=== PATIENT | female | born 1990 | race African-American/Black ===

== ENCOUNTER 2018-05-09 20:40 | Emergency (ER) | payer MEDICAID ==
[~2018-05-09] VITALS: Ht 165.1 cm; Wt 84.4 kg
[2018-05-09 21:29] VITALS: BP 112/63
--- NOTE | 2018-05-09 21:44 | Emergency Room Report ---
History of Present Illness General Chief Complaint: Pain Source: Patient Present Illness HPI This is a 27-year-old female 4, para 2, approximately 5 weeks . She presents with chief complaint of left pelvic cramps. No bleeding. She had a history of ectopic on the left side. She is O-. So far, no testing. No fever chills but no nausea no vomiting. Pain came after she fell at work 4 days ago. She has a second complaint of left arm pain and numbness. His been ongoing for a few months. No trauma. No neck pain. Pain started from the right trapezius going down to the fingers. Denies any other complaint. Worse with certain movement. No focal deficit. Also with diffuse joint pain in that arm. No swelling. Allergies: Coded Allergies: No Known Allergies (Unverified , 05/09/18) Patient History Past Medical History: see triage record, old chart reviewed Past Surgical History: other Pertinent Family History: none Social History: Denies: smoking Last Menstrual Period: 03/30/2018 Now: Yes - Approx 5-6 weeks Immunizations: other Reviewed Nursing Documentation: PMH: Agreed; PSxH: Agreed Nursing Documentation-PMH Past Medical History: No Stated History Review of Systems Eye: Denies: eye pain, blurred vision ENT: Denies: ear pain, nose congestion, throat swelling Respiratory: Denies: cough, shortness of breath Cardiovascular: Denies: chest pain, palpitations Gastrointestinal: Denies: abdominal pain, diarrhea, nausea, vomiting Genitourinary: Reports: pain Musculoskeletal: Reports: muscle pain; Denies: back pain, joint pain Skin: Denies: rash Neurological: Denies: headache, numbness Endocrine: Denies: increased thirst, increased urine Hematologic/Lymphatic: Denies: easy bruising All Other Systems: negative except mentioned in HPI Physical Exam Vital Signs Date Time Temp Pulse Resp B/P (MAP) Pulse Ox O2 Delivery O2 Flow Rate FiO2 05/09/18 20:44 98.1 86 19 110/67 97 Room Air vitals negrito Sp02 EP Interpretation: reviewed, normal General Appearance: well appearing, no apparent distress, alert Head: normocephalic, atraumatic Eyes: bilateral eye PERRL, bilateral eye EOMI ENT: hearing grossly normal, normal pharynx Neck: full range of motion, supple, no meningismus Respiratory: chest non-tender, lungs clear, normal breath sounds Cardiovascular #1: regular rate, rhythm, no murmur Gastrointestinal: normal bowel sounds, non tender, no mass, no organomegaly, no bruit, non-distended Musculoskeletal: back normal, gait/station normal, normal range of motion Psychiatric: mood/affect normal Skin: warm/dry Medical Decision Making Diagnostic Impression: Primary Impression: Threatened in first trimester Additional Impression: Paresthesia of right arm ER Course Patient presents with a threatened . Ultrasound showed gestational sac but no heartbeat. No ectopic. We'll discharge home. She will need repeat blood testing and follow-up within a week. CT/MRI/US Diagnostic Results CT/MRI/US Diagnostic Results : Imaging Test Ordered: Pelvic ultrasound Impression Read by radiologist. Gestational sac without any heartbeat. Last Vital Signs Date Time Temp Pulse Resp B/P (MAP) Pulse Ox O2 Delivery O2 Flow Rate FiO2 05/09/18 20:44 98.1 86 19 110/67 97 Room Air Status: improved Disposition: HOME, SELF-CARE Condition: Stable Scripts Vits #93/Iron Fum/Fa ( FORMULA TABLET) 1 Each Tablet 1 EACH PO DAILY, #100 TAB Prov: Darwin Lezama MD 05/09/18 Additional Instructions: Follow-up with your doctor within a week. You will need a referral to see OB/ [facility]. Return if symptom worsen. Darwin Lezama MD May 09, 2018 21:44
[2018-05-09] MEDS ORDERED: Acetaminophen 500mg (ES) tab ORAL ONE (21:45)
[2018-05-09 22:05] LABS: APPEARANCE,URINE CLEAR; BILIRUBIN, URINE NEGATIVE (NEGATIVE); GLUCOSE, URINE (UA) NEGATIVE (NEGATIVE); KETONES,URINE 1+ (NEGATIVE); LEUKOCYTE ESTERASE ,URINE 1+ (NEGATIVE); NITRITE,URINE NEGATIVE (NEGATIVE); PH,URINE 6.5 (4.5-8.0); PROTEIN,URINE NEGATIVE (NEGATIVE); UROBILINOGEN,URINE 1 MG/DL (0.0-1.0)
[2018-05-09 22:07] LABS: COLOR,URINE YELLOW
[2018-05-09] MEDS ORDERED: PRENATAL FORMU1 EAC4 PO (23:08)
[2018-05-09 23:19] VITALS: BP 115/62
--- NOTE | 2018-05-10 10:31 | Diagnostic Imaging Report ---
EXAM: US First Trimester, Transabdominal US , Transvaginal CLINICAL HISTORY: Pelvic pain TECHNIQUE: Real-time transabdominal and transvaginal obstetrical ultrasound of the maternal pelvis and a first trimester with image documentation. Transvaginal imaging was used for better evaluation of the fetus and adnexa. COMPARISON: No relevant prior studies available. FINDINGS: Gestation: Single intrauterine gestational sac identified, with mean sac diameter of 7.5 mm. No pole or yolk sac identified. Placenta/amniotic fluid: Cannot be adequately evaluated due to the early gestational age. Uterus/cervix: The uterus measures 7.8 x 6.7 x 5.4 cm. Endometrial stripe thickness of 9.3 mm. No myometrial mass. Ovaries: 2.0 x 1.3 x 1.1 cm left ovarian cyst with crenelated margins, most likely representing a corpus luteum. The left ovary measures 4.5 x 2.9 x 2.6 cm. Normal Doppler flow. The right ovary measures 3.7 x 3.4 x 1.6 cm. Normal Doppler flow. No mass. Free fluid: No free fluid. IMPRESSION: 1. Single intrauterine gestational sac. No pole or yolk sac identified. This suggests very early status. Recommend follow- up sonography. 2. 2.0 x 1.3 x 1.1 cm left ovarian cyst with crenelated margins, most likely representing a corpus luteum.
== END 2018-05-09 23:19 | disposition home or self-care (01) ==
LOC: EMR 22:34
DX: O20.0 Threatened abortion (principal); Z3A.01 Less than 8 weeks gestation of pregnancy; R20.2 Paresthesia of skin; M79.602 Pain in left arm; F17.200 Nicotine dependence, unspecified, uncomplicated; M79.10 Myalgia, unspecified site
CPT/HCPCS: 36415; 76801; 76830; 81003; 84702; 86850; 86900; 86901; 99284

== ENCOUNTER 2018-05-14 16:15 | Emergency (ER) | payer MEDICAID ==
[~2018-05-14] VITALS: Ht 162.6 cm; Wt 83.5 kg
[~2018-05-14 16:15] MED LIST: PRENATAL FORMU1 EAC4 PO
[2018-05-14 16:18] VITALS: BP 110/70
--- NOTE | 2018-05-14 16:18 | NUR ---
ED Nurse Note: Pt AAO x4 present at ER c/o abdominal cramps 09/05. Pt reported that she had vaginal bleeding a week ago and [place] been [facility] [place] and was discharged. Pt did not have vaginal bleeding since but cramps have not been resolved. skin intact, calm and cooperative with initial care. Pt is on top closer.
[2018-05-14] MEDS ORDERED: RHO (D) Immune Globulin 1500 Units IM ONE (17:15)
--- NOTE | 2018-05-14 17:18 | Emergency Room Report ---
History of Present Illness General Chief Complaint: Female Urogenital Problems Source: Patient Present Illness HPI Patient presents with lower abdominal pain. Her last period was early March. She was seen here once before she had been spotting before that visit. She was recommended to get a repeat quantitative hCG done. She was here for that. The bleeding stopped, before it was only spotting. She is O- and did not receive her exam she was here before. The pain is right lower quadrant and cramping 6/10. She's not taking any medication. She's been working instead of resting. She denies fever and dysuria. She says ultrasound wasn't able to identify a . Her quantitative hCG was 4302 on May 09. No fevers, chills, chest pain, palpitations, nausea, vomiting, diarrhea, dysuria , shortness of breath, depression, visual changes, headache. No calf pain, edema. Allergies: Coded Allergies: No Known Allergies (Unverified , 05/09/18) Patient History Past Medical History: see triage record Social History: Reports: smoking Social History Narrative Has to children's the youngest is 4 years old Now: Yes : 4 Para: 2 Reviewed Nursing Documentation: PMH: Agreed; PSxH: Agreed Nursing Documentation-PMH Past Medical History: No Stated History Review of Systems All Other Systems: negative except mentioned in HPI Physical Exam Vital Signs Date Time Temp Pulse Resp B/P (MAP) Pulse Ox O2 Delivery O2 Flow Rate FiO2 05/14/18 16:46 98.1 90 18 109/69 98 Room Air Sp02 EP Interpretation: reviewed, normal General Appearance: well appearing, no apparent distress, GCS 15 Head: normocephalic Eyes: bilateral eye normal inspection, bilateral eye PERRL ENT: moist mucus membranes Neck: supple Respiratory: lungs clear, normal breath sounds Cardiovascular #1: regular rate, rhythm Cardiovascular #2: 2+ radial (R) Gastrointestinal: normal inspection, normal bowel sounds, no mass, non- distended, tenderness - Minimal suprapubic Genitourinary: no CVA tenderness, deferred - pelvic as no bleeding Musculoskeletal: back normal, gait/station normal, normal range of motion Neurologic: alert, oriented x3 Skin: normal inspection, warm/dry Medical Decision Making Diagnostic Impression: Primary Impression: Early stage of Additional Impressions: Type O blood, Rh negative Suprapubic pain ER Course Presents with lower abdominal pain with history of previous bleeding here for repeat quantitative hCG. She didn't receive Rhogam initially. She knows she is O-. Blood will be obtained to give Rhogam and a repeat quantitative HCG will be performed. Quant elevated. Rhogam given. Improved. Discussed outpatient treatment plan. Discussed smoking cessation. Patient stable for outpatient observation and treatment. Laboratory Tests Test 05/14/18 17:15 Human Chorionic Gonadotropin, Quant 37161 mIU/mL (1-6) H CT/MRI/US Diagnostic Results CT/MRI/US Diagnostic Results : Imaging Test Ordered: ultrasound 05/09 Impression 1. Single intrauterine gestational sac. No pole or yolk sac identified. This suggests very early status. Recommend follow- up sonography. 2. 2.0 x 1.3 x 1.1 cm left ovarian cyst with crenelated margins, most likely representing a corpus luteum. Last Vital Signs Date Time Temp Pulse Resp B/P (MAP) Pulse Ox O2 Delivery O2 Flow Rate FiO2 05/14/18 16:46 98.1 90 18 109/69 98 Room Air Status: improved Disposition: HOME, SELF-CARE Condition: Improved Scripts Acetaminophen (Tylenol) 325 Mg Tablet 650 MG ORAL Q6H PRN for Prn Pain/Headache/Temp > 101, #20 TAB 0 Refills Prov: Stu Santiago MD 05/14/18 Stu Santiago MD May 14, 2018 17:18
--- NOTE | 2018-05-14 17:30 | NUR ---
ED Nurse Note: Received the order of Colin DEAL from ROBERTO and nurse went to lab to picking table worker the medication. Lab techintial wanted to confirm that it is same as Rhogam. will f/u with .
--- NOTE | 2018-05-14 18:00 | NUR ---
ED Nurse Note: Confirmed with ERMD that Winroh SD is same as Rhogem per lab technitian's request. Lab will run the ABO test and will call for the medication fiber picker. Nurse name was given.
--- NOTE | 2018-05-14 18:49 | NUR ---
ED Nurse Note: Called the lab and still waiting for the Rhogem to be ready after we get ABO results. made aware.
--- NOTE | 2018-05-14 19:00 | NUR ---
ED Nurse called the lab to find out if Rhogem injection is ready. They will call back when it's ready
--- NOTE | 2018-05-14 19:20 | NUR ---
ED Nurse Note: Lab called and said Rhogem is ready and doctor needs to fill out consent form. made aware.
--- NOTE | 2018-05-14 19:28 | NUR ---
HAND-OFF: Report given to Denae. Told her regaridng Rhogem ready in the lab and we need to warp picker and inject to pt.
--- NOTE | 2018-05-14 19:54 | NUR ---
ED Nurse Note: Received Pt and report from ALDA Philippe, will follow the med with pharmacy.
[2018-05-14] MEDS ORDERED: TYLENOL325 MG ORAL (21:10)
[2018-05-14 21:50] VITALS: BP 124/87
--- NOTE | 2018-05-14 21:50 | NUR ---
ED Nurse Note: Pt cleared DC by ROBERTO. Pt is AO x 4times, VSS, on room air no distress. Belongings given to Pt. DC and meds instructions given to Pt, Pt understood well. ID bend and IV site removed. Pt walkled out unit with steady gait with family.
== END 2018-05-14 21:50 | disposition home or self-care (01) ==
LOC: EMR 17:20
DX: O26.891 Other specified pregnancy related conditions, first trimester (principal); R10.30 Lower abdominal pain, unspecified; O99.331 Smoking (tobacco) complicating pregnancy, first trimester; F17.200 Nicotine dependence, unspecified, uncomplicated; O36.0910 Maternal care for other rhesus isoimmunization, first trimester, not applicable or unspecified
CPT/HCPCS: 36415; 84702; 86850; 86900; 86901; 96372; 99283

== ENCOUNTER 2018-08-05 22:04 | Emergency (ER) | payer MEDICAID ==
[~2018-08-05] VITALS: Ht 162.6 cm; Wt 83.9 kg
[~2018-08-05 22:04] MED LIST changes: +TYLENOL325 MG ORAL
[2018-08-05] MEDS ORDERED: NKM (22:13)
[2018-08-05 22:30] VITALS: BP 132/81
[2018-08-05 22:50] LABS: APPEARANCE,URINE CLEAR; BILIRUBIN, URINE NEGATIVE (NEGATIVE); COLOR,URINE PALE YELLOW; GLUCOSE, URINE (UA) NEGATIVE (NEGATIVE); KETONES,URINE NEGATIVE (NEGATIVE); LEUKOCYTE ESTERASE ,URINE NEGATIVE (NEGATIVE); NITRITE,URINE NEGATIVE (NEGATIVE); PH,URINE 6.5 (4.5-8.0); PROTEIN,URINE NEGATIVE (NEGATIVE); UROBILINOGEN,URINE NORMAL MG/DL (0.0-1.0)
--- NOTE | 2018-08-05 23:36 | Emergency Room Report ---
History of Present Illness General Chief Complaint: General Complaint Source: Patient Present Illness HPI This is a 27-year-old female with no cerumen past medical history. She presents with chief complaint of early versus miscarriage. Also had some chest pain/chest pressure. She was in April and had ultrasound that showed early . She had intermittent spotting. She went to [facility] in June and was told that she may have an ectopic in the recommend surgery. She had a hCG level was 15. She went to get a second opinion so she went to [facility] the next day. Ultrasound showed ovarian cysts. This is same as our ultrasound here. I see level then was 15. She then had bleeding is similar to her menstrual flow. This was 3 weeks ago. Since then she has some spotting and still spotting today. She actually had several urine that was negative. She came in today because the test was faintly positive. She hasn't had sexual intercourse since she was bleeding. Her chest pain is described as a funny feeling. Sometimes she felt palpitation. No nausea no vomiting. No fever chills. She attributed to the stress of going on. Allergies: Coded Allergies: No Known Allergies (Unverified , 05/09/18) Patient History Past Medical History: see triage record, old chart reviewed Past Surgical History: none Pertinent Family History: none Social History: Denies: smoking Last Menstrual Period: Miscarriage in April Now: No : 5 Para: 2 Immunizations: other Reviewed Nursing Documentation: PMH: Agreed; PSxH: Agreed Nursing Documentation-[facility] Past Medical History: No Stated History Review of Systems Eye: Denies: eye pain, blurred vision ENT: Denies: ear pain, nose congestion, throat swelling Respiratory: Denies: cough, shortness of breath Cardiovascular: Reports: palpitations; Denies: chest pain Gastrointestinal: Denies: abdominal pain, diarrhea, nausea, vomiting Musculoskeletal: Denies: back pain, joint pain Skin: Denies: rash Neurological: Denies: headache, numbness Endocrine: Denies: increased thirst, increased urine Hematologic/Lymphatic: Denies: easy bruising All Other Systems: negative except mentioned in HPI Physical Exam Vital Signs Date Time Temp Pulse Resp B/P (MAP) Pulse Ox O2 Delivery O2 Flow Rate FiO2 08/05/18 22:09 98.1 85 18 132/81 100 Room Air vitals normal Sp02 EP Interpretation: reviewed, normal General Appearance: well appearing, no apparent distress, alert Head: normocephalic, atraumatic Eyes: bilateral eye PERRL, bilateral eye EOMI ENT: hearing grossly normal, normal pharynx Neck: full range of motion, supple, no meningismus Respiratory: chest non-tender, lungs clear, normal breath sounds Cardiovascular #1: regular rate, rhythm, no murmur Gastrointestinal: normal bowel sounds, non tender, no mass, no organomegaly, no bruit, non-distended Musculoskeletal: back normal, gait/station normal, normal range of motion Psychiatric: mood/affect normal Skin: warm/dry Medical Decision Making Diagnostic Impression: Primary Impression: Stress response Additional Impression: Qualified Codes: Z3A.01 - Less than 8 weeks gestation of ER Course Patient presents with vaginal bleeding. This may be a small retained products of conception versus early . She has no pain rated recommend repeat blood testing in 2 days. Her chest pain may be stress related. No evidence of ACS, PE, dissection to name a few. we will discharge home. Last Vital Signs Date Time Temp Pulse Resp B/P (MAP) Pulse Ox O2 Delivery O2 Flow Rate FiO2 08/05/18 22:09 98.1 85 18 132/81 100 Room Air Status: improved Disposition: HOME, SELF-CARE Condition: Stable Referrals: NOT CHOSEN IPA/,REFERRING (PCP) Additional Instructions: Follow-up with your doctor or sticker on within a week. You will need repeat testing. Return if symptom worsen. Darwin Lezama MD Aug 05, 2018 23:36
[2018-08-05 23:46] VITALS: BP 132/81
== END 2018-08-05 23:47 | disposition home or self-care (01) ==
LOC: EMR 22:30
DX: O26.91 Pregnancy related conditions, unspecified, first trimester (principal); O26.851 Spotting complicating pregnancy, first trimester; F43.0 Acute stress reaction; R07.9 Chest pain, unspecified; Z3A.01 Less than 8 weeks gestation of pregnancy; R00.2 Palpitations
CPT/HCPCS: 36415; 81003; 84702; 99283